=== PATIENT | female | born 1970 | race Native Hawaiian/Other Pacific Islander ===

== ENCOUNTER 2016-09-17 07:27 | Day surgery (SDC) | payer OTHER | END 2016-09-17 09:45 | disposition home or self-care (01) | LOC: OR 07:27 | PROC: 0DJD8ZZ Inspection of Lower Intestinal Tract, Via Natural or Artificial Opening Endoscopic (ICD-10-PCS; principal; 2016-09-17) | DX: Z12.11 Encounter for screening for malignant neoplasm of colon (principal) | CPT/HCPCS: J2704 ==

== ENCOUNTER 2018-09-10 07:16 | Outpatient (CLI) | payer OTHER ==
[2018-09-10 08:05] LABS: PLATELET COUNT 219 K/uL (152-353)
[2018-09-10 08:44] LABS: POTASSIUM 4.3 mmol/L (3.6-5.2)
== END 2018-09-10 19:42 | disposition home or self-care (01) ==
LOC: LAB 07:16
DX: Z00.00 Encounter for general adult medical examination without abnormal findings (principal); R68.82 Decreased libido; R53.83 Other fatigue; Z13.220 Encounter for screening for lipoid disorders; N95.1 Menopausal and female climacteric states; E55.9 Vitamin D deficiency, unspecified; E07.89 Other specified disorders of thyroid
CPT/HCPCS: 36415; 80053; 80061; 82306; 82626; 82670; 83001; 84144; 84402; 84439; 84443; 84481; 85027

== ENCOUNTER 2019-05-11 07:40 | Outpatient (CLI) | payer OTHER ==
[2019-05-11 08:07] LABS: POTASSIUM 4.1 mmol/L (3.6-5.2)
== END 2019-05-11 23:03 | disposition home or self-care (01) ==
LOC: LABW 07:40
DX: R53.83 Other fatigue (principal); Z13.220 Encounter for screening for lipoid disorders
CPT/HCPCS: 36415; 80053; 80061; 84481

== ENCOUNTER 2019-08-30 06:06 | Outpatient (CLI) | payer OTHER ==
[2019-08-30 06:55] LABS: POTASSIUM 3.7 mmol/L (3.6-5.2)
== END 2019-08-30 22:21 | disposition home or self-care (01) ==
LOC: LABW 06:06
DX: Z79.899 Other long term (current) drug therapy (principal); E78.5 Hyperlipidemia, unspecified; R53.83 Other fatigue
CPT/HCPCS: 36415; 80053; 80061; 84436; 84443; 84481

== ENCOUNTER 2022-06-05 07:44 | Outpatient (CLI) | payer OTHER | END 2022-06-05 21:17 | disposition home or self-care (01) | LOC: RAD 07:44 | PROVIDERS: ATTEND Nurse Practitioner | DX: Z13.820 Encounter for screening for osteoporosis (principal) ==